=== PATIENT | male | born 1955 | race Caucasian/White ===

== ENCOUNTER → 2017-10-16 | Outpatient (REF) | payer OTHER | END | disposition home or self-care (01) | LOC: WSOH 14:19 | DX: S50.811A Abrasion of right forearm, initial encounter (principal); Z23 Encounter for immunization; F17.210 Nicotine dependence, cigarettes, uncomplicated; W26.8XXA Contact with other sharp object(s), not elsewhere classified, initial encounter; Y93.H3 Activity, building and construction; Y99.0 Civilian activity done for income or pay | CPT/HCPCS: A9270-GY ==

== ENCOUNTER → 2019-10-04 | Outpatient (CLI) | payer OTHER | LOC: COL.RAD 06:44 | DX: M70.41 Prepatellar bursitis, right knee (principal); M17.0 Bilateral primary osteoarthritis of knee ==